=== PATIENT | female | born 1960 | race Caucasian/White ===

== ENCOUNTER 2019-01-06 11:39 | Emergency (ER) | payer OTHER ==
[~2019-01-06] VITALS: Ht 162.6 cm; Wt 56.0 kg
[2019-01-06 12:28] VITALS: BP 114/70
== END 2019-01-06 16:42 | disposition left against medical advice (07) ==
LOC: ER 11:39
DX: M79.641 Pain in right hand (principal); Z98.890 Other specified postprocedural states; W19.XXXA Unspecified fall, initial encounter; Y93.89 Activity, other specified; Y92.89 Other specified places as the place of occurrence of the external cause; Y99.8 Other external cause status
CPT/HCPCS: 99281